=== PATIENT | female | born 1960 | race Two or more races ===

== ENCOUNTER → 2017-06-07 | Outpatient (CLI) | payer OTHER ==
[~2017-06-07] MED LIST: BENA20TA48 PO; FOR CHOLESTEROL; NAPR-773 PO
--- NOTE | 2017-06-07 12:32 | RADRPT ---
PROCEDURE: CR Left Knee CLINICAL INDICATION: Pain TECHNIQUE: An AP, a tunnel, a lateral view with weightbearing and a sunrise view were submitted. COMPARISON: None FINDINGS: Osseous Structures: The osseous elements appear well mineralized and intact. Joint Spaces: There is narrowing of the patellar femoral and medial femoral tibial joint spaces with moderate degenerative spurring. A small joint effusion is evident. Soft Tissues: The soft tissues appear unremarkable. IMPRESSION: 1. Moderate osteoarthritic change at the medial left femoral tibial and patellar femoral joint spac es. 2. Small joint effusion. Physician Jennyfer Date Time Electronically viewed and signed by Physician Jennyfer on 06/07/2017 12:32 /
--- NOTE | 2017-06-08 07:11 | HKNOTE ---
DATE OF SERVICE: 06/07/2017 CHIEF COMPLAINT: Left knee pain. HISTORY OF PRESENT ILLNESS: This is a 57-year-old female complaining of chronic left knee pain. Th e pain has been progressively worsening in the left knee. She had previous left knee arthroscopic m eniscectomy approximately 10 years ago. She takes Naprosyn for pain control. She does not use any braces or assistive devices. She denies any history of trauma. The pain is rated as a 3/10. It do es not interfere with her activities of daily living. She denies any back or groin pain. The pain is on the inside of the left knee. She denies any locking or catching. She has no other complaints . GAIT: Nonantalgic gait. No use of assistive device. LEFT KNEE EXAM: Neutral alignment. Tender over the medial joint line. Nontender over the lateral joint line. 0 to 120 degrees range of motion. No crepitance on range of motion. No fusion. Negat jaun Alejandrina. Negative anterior drawer. Negative posterior drawer. Negative Ana Rosa. MOTOR STRENGTH: 5/5 quadriceps, hamstrings, tibialis anterior, gastroc soleus. IMAGING: X-ray, left knee, 4 views of the left knee demonstrate tricompartmental osteoarthritis of the left knee with marginal osteophytes and subchondral sclerosis. IMPRESSION: A 57-year-old female with left knee osteoarthritis. PLAN: I discussed treatment options with Ms. Nelson. At this time, she has minimal pain. If she co ntinues to have pain in the future, she can come back for a left knee injection. I also discussed w ith her the need for possible left total knee arthroplasty in the future. She will follow up as bettie kiser. Dictated By: MARISSA DIEGO/JALEN Conf#: [id number] DID#: [id number]
== END | disposition home or self-care (01) ==
LOC: HKI 10:15
PROVIDERS: ATTEND Orthopaedic Surgery Adult Reconstructive Orthopaedic Surgery
DX: M17.12 Unilateral primary osteoarthritis, left knee (principal)
CPT/HCPCS: 73564; Z7500; G0463